=== PATIENT | male | born 1970 | race Hispanic/Latino ===

== ENCOUNTER 2025-07-16 14:56 | Emergency (ER) | payer BC ==
[~2025-07-16] VITALS: Ht 180.3 cm; Wt 113.4 kg
[2025-07-16 16:03] LABS: IMMATURE GRANULOCYTE ABSOLUTE 0.03 K/uL (0-1); NUCLEATED RED BLOOD CELLS 0.0 % (0.0-0.19); PLATELET COUNT (AUTO) 196 K/uL (130-400); RED BLOOD CELL COUNT(AUTO) 5.33 MIL/uL (4.50-6.20); RED CELL DISTRIBUTION WIDTH 13.1 % (11.0-15.5); WHITE BLOOD COUNT (AUTO) 7.6 K/uL (4.8-10.8)
[2025-07-16 16:20] LABS: CREATININE 0.9 mg/dL (0.5-1.3); GLOMERULAR FILTR. RATE CALC 101.0 mL/min (>90); GLUCOSE,RANDOM 106.0 mg/dL (70-105); SODIUM SERUM 136.0 mmol/L (136-145); UREA NITROGEN, BLOOD 12.0 mg/dL (7-18)
[2025-07-16] MEDS ORDERED: IOHEXOL-350 75 ML VIAL IV ONE (16:30)
--- NOTE | 2025-07-16 17:35 | HMCIMG ---
EXAM: CT Abdomen and Pelvis with IV contrast CLINICAL HISTORY: hx of diverticultiis TECHNIQUE: Axial computed tomography images of the abdomen and pelvis with intravenous contrast. CONTRAST: with intravenous contrast. COMPARISON: None provided. FINDINGS: LUNG BASES: Minimal right-sided pleural effusion is noted. LIVER: Liver measures 16.4 cm. Mild hepatomegaly. Diffuse fatty attenuation of liver parenchyma. GALLBLADDER AND BILE DUCTS: Few small hyperdense calculi were noted in the neck of the gallbladder of size 8 x 4 mm. The gallbladder appears within normal limits otherwise, except for the calculi. No biliary ductal dilatation is evident. PANCREAS: Unremarkable. SPLEEN: Unremarkable. ADRENAL GLANDS: Unremarkable. KIDNEYS, URETERS, AND BLADDER: Normal kidneys. No hydronephrosis. STOMACH AND BOWEL: Colonic diverticulosis in the sigmoid and distal part of the descending colon with short segment circumferentially significant thickening of the sigmoid colon, maximum thickening 2 cm, with mild surrounding inflammatory changes and peritoneal thickening, consistent with acute diverticulitis. Unremarkable appearance of the stomach and rest of the bowel, except for the sigmoid colon. No evidence of bowel obstruction. No evidence suggesting enteritis or colitis. APPENDIX: Normal appendix. PERITONEUM: Mild peritoneal thickening in the region of the sigmoid colon. No free fluid. No free air. LYMPH NODES: No lymphadenopathy is evident. REPRODUCTIVE: Normal prostate. VASCULATURE: No evidence of abdominal aortic aneurysm. BONES: Spine degenerative changes noted. No aggressive appearing osseous lesion. No acute osseous pathology evident. IMPRESSION: 1. Sigmoid diverticulitis with significant bowel wall thickening. Given the bowel wall thickening, a follow-up study is recommended after treatment to exclude an underlying mass. 2. Cholelithiasis. 3. Mild hepatomegaly with diffuse fatty attenuation. /[place]
[2025-07-16] MEDS ORDERED: KETO10TA2 PO (18:27)
[2025-07-16] MEDS ORDERED: AMOX1TAB16 PO (18:30)
[2025-07-16] MEDS: 0.9%NACL 1000ML 1,000 ML IV ONE (18:37)
--- NOTE | 2025-07-16 19:20 | ERN ---
General Chief Complaint: Abdominal Pain Stated Complaint: ABDOMINAL PAIN Time Seen by MD: 15:29 Time Seen by Midlevel: 15:29 Source: patient History of Present Illness Initial Comments The patient is a 55-year-old male with a medical history of diverticulitis presenting to the emergency department for evaluation of left lower quadrant abdominal pain that started yesterday. Associated symptoms include fevers that started yesterday. Allergies: Coded Allergies: No Known Drug Allergies (Unverified Allergy, Unknown, 07/16/25) Home Meds Active Scripts Amoxicillin/Potassium Clav (Amox Tr-K Clv 875-125 mg Tab) 875 Mg-125 Mg Tablet, 1 EACH PO TID for 5 Days, #15 TAB 0 Refills Prov:BRIGETTE GIMENEZ 07/16/25 Ketorolac Tromethamine (Ketorolac Tromethamine) 10 Mg Tablet, 1 TAB PO TID for pain for 5 Days, #15 TAB 0 Refills Prov:BRIGETTE GIMENEZ 07/16/25 Past Medical History Past Medical History: No Pertinent History Past Surgical History: None ROS Dictation CONSTITUTIONAL: Negative except for HPI HEAD/FACE: Negative except for HPI EENT: Negative except for HPI RESPIRATORY: Negative except for HPI GASTROINTESTINAL/ABDOMINAL: Negative except for HPI GENITOURINARY: Negative except for HPI MUSCULOSKELETAL: Negative except for HPI INTEGUMENTARY: Negative except for HPI NEUROLOGICAL/PSYCH: Negative except for HPI HEMATOLOGIC/LYMPHATIC: Negative except for HPI All Systems Negative, Except as noted above. 13 point review of systems assessed and all negative except for above. Physical Exam Physical Exam Dictation Vital Signs reviewed General Appearance: Alert, oriented x 3, no acute distress, well developed, nourished. Head and Face: non-traumatic. Eyes: PERRL, pink conjunctivas, eyelid no trauma, anterior chamber with arcus senilis. Ears: Pinnas intact and no signs of trauma or erythema ear canals clear and no discharge TM no erythema Nose: No discharge, no bleeding. Oropharynx: Mouth normal, tongue pink, pharynx clear,no erythema, tonsils no exudates, no abscesses noted, mucous membrane moist Neck: Supple, non-tender, no thyromegaly, no masses, no JVD, no bruits Breast:Deferred Chest:No tenderness, no crepitus, no paradoxical movement, no retractions Lungs:Clear, well-ventilated, symmetric, no rales, no wheezing, no rhonchi, no stridor, good breath sounds bilaterally Heart: Regular rate, regular rhythm, no murmur, no gallops Vascular: no peripheral edema, Abdomen: Soft, positive bowel sounds, nondistended, no guarding, Left lower quadrant abdominal tenderness, no rebound, no masses no hepatomegaly, no splenomegaly, no Victor's sign, no hernias. Rectal: Deferred Genital: Deferred Neurological: Normal speech, motor function intact, sensory function intact Musculoskeletal: Neck nontender, full range of motion, back nontender, full range of motion, Extremities: nontender, full range of motion Skin: Color pink, dry, no turgor, no rash, no lacerations, no abrasions, no contusions. Lymphatic: Deferred Results Laboratory and Microbiology Lab and Micro Result Laboratory Tests Test 07/16/25 15:45 White Blood Count 7.6 K/uL (4.8-10.8) Red Blood Count 5.33 MIL/uL (4.50-6.20) Hemoglobin 15.4 g/dL (14.0-18.0) Hematocrit 45.5 % (42-54) Mean Corpuscular Volume 85.4 fL (79-99) Mean Corpuscular Hemoglobin 28.9 pg (27.0-33.0) Mean Corpuscular Hemoglobin Concent 33.8 g/dL (32.0-36.0) Red Cell Distribution Width 13.1 % (11.0-15.5) Platelet Count 196 K/uL (130-400) Mean Platelet Volume 9.7 fL (7.5-10.5) Immature Granulocyte % (Auto) 0.4 % (0-1) Neutrophils (%) (Auto) 70.3 % (40.0-77.0) Lymphocytes (%) (Auto) 16.6 % (21.0-51.0) L Monocytes (%) (Auto) 10.7 % (3.0-13.0) Eosinophils (%) (Auto) 1.2 % (0.0-8.0) Basophils (%) (Auto) 0.8 % (0.0-5.0) Neutrophils # (Auto) 5.3 K/uL (1.8-7.7) Lymphocytes # (Auto) 1.3 K/uL (1.0-4.8) Monocytes # (Auto) 0.8 K/uL (0.1-1.0) Eosinophils # (Auto) 0.09 K/uL (0.00-0.70) Basophils # (Auto) 0.06 K/uL (0.00-0.20) Absolute Immature Granulocyte (auto 0.03 K/uL (0-1) Nucleated Red Blood Cells 0.0 % (0.0-0.19) Sodium Level 136 mmol/L (136-145) Potassium Level 4.2 mmol/L (3.5-5.1) Chloride Level 102 mmol/L (101-111) Carbon Dioxide Level 30 mmol/L (21-32) Blood Urea Nitrogen 12 mg/dL (7-18) Creatinine 0.9 mg/dL (0.5-1.3) Glomerular Filtration Rate Calc 101 mL/min (>90) Random Glucose 106 mg/dL (70-105) H Lactic Acid Level 1.4 mmol/L (0.8-2.5) Total Calcium 8.6 mg/dL (8.5-10.1) Labs Reviewed?: Yes MDM MDM: Differential diagnosis: Diverticulitis, constipation, bowel obstruction There are no social concerns with this patient. Prescription drug management Prescriptions will include: Augmentin, ketorolac Medical management and examination interpretation discussions were had by me with other qualified healthcare professionals as indicated for the patient's care. ED Course Orders Procedure Category Date Status Time Cbc With Differential LAB 07/16/25 Complete 15:29 Basic Metabolic Panel LAB 07/16/25 Complete 15:29 Lactic Acid LAB 07/16/25 Complete 15:29 Ct Abdomen/Pelvis CT 07/16/25 Resulted W/Contrast 15:29 Iohexol (Omnipaque) PHA 07/16/25 Complete 16:30 0.9%Nacl 1000ml (Ns PHA 07/16/25 Complete 1000ml) 18:30 Metronidazole PHA 07/16/25 In Process 500mg/100ml Bag 19:00 Ketorolac PHA 07/16/25 Complete Tromethamine 15mg/Ml 18:30 Acetaminophen 500mg PHA 07/16/25 Complete Tab (Tylenol 500mg T 18:30 Current Medications Medications (Trade) Dose Ordered Sig/Adriane Route PRN Reason Start Time Stop Time Status Last Admin Dose Admin Acetaminophen (TYLenol 500MG TAB) 1,000 mg ONCE ONCE PO 07/16/25 18:30 07/16/25 18:35 DC 07/16/25 18:42 Iohexol (Omnipaque) 75 ml STK-MED ONCE IV 07/16/25 16:30 07/16/25 16:30 DC Ketorolac Tromethamine (toRADol) 15 mg ONCE ONCE IV 07/16/25 18:30 07/16/25 18:35 DC 07/16/25 18:37 Metronidazole/ Sodium Chloride 100 ml @ 100 mls/hr ONCE ONCE IVPB 07/16/25 19:00 07/16/25 19:59 07/16/25 18:41 Sodium Chloride 1,000 ml @ 0 mls/hr ONCE ONCE IV 07/16/25 18:30 07/16/25 18:35 DC 07/16/25 18:37 Vital Signs Date Time Temp Pulse Resp B/P (MAP) Pulse Ox O2 Delivery O2 Flow Rate FiO2 07/16/25 18:42 101.3 07/16/25 16:30 101.3 84 16 150/85 98 Room Air* 0 21 07/16/25 14:59 101.3 89 16 151/89 99 Room Air DX & DISP Disposition: Discharge Departure Impression: Primary Impression: Sigmoid diverticulitis Condition: Stable Scripts Amoxicillin/Potassium Clav (Amox Tr-K Clv 875-125 mg Tab) 875 Mg-125 Mg Tablet 1 EACH PO TID for 5 Days, #15 TAB 0 Refills Prov: BRIGETTE GIMENEZ 07/16/25 Ketorolac Tromethamine (Ketorolac Tromethamine) 10 Mg Tablet 1 TAB PO TID for pain for 5 Days, #15 TAB 0 Refills Prov: BRIGETTE GIMENEZ 07/16/25 Additional Instructions: You has been diagnosed with a acute diverticulitis, which means small patches in your colon came inflamed or infected. This is an uncomplicated case, so you can be safely treated at home. You received your 1st dose of antibiotics in the emergency department and you will now continue with oral antibiotics at home. For the next few days, speak to a clear liquid diet. Example broth, gelatin, cleared juices, tea, etc.. As your symptoms improve he can slowly advanced to soft foods in the back to your regular diet. Avoid seeds, nuts, popcorn, or foods that are hard to digest until you fully recovered. Rest as needed, but light walking is encouraged to help bowel function. If you develop persistent fevers, nausea, vomiting, or worsening abdominal pain please report to the ER for further evaluation. Referrals: RADHA LEVINE (PCP) I have reviewed the case, and I agree with, Diagnosis and Plan I performed the substantive portion of the visit. I have reviewed and personally made and approve the management plan that is documented in the note by myself or the LISBET. I acknowledge for responsibility for the patient's management plan. BRIGETTE GIMENEZ Jul 16, 2025 19:20
--- NOTE | 2025-07-16 19:28 | NUR ---
DC PEND MEDICATION ADMINISTRATION
[2025-07-16 19:50] VITALS: BP 145/80; PULSE 80; RESP 16; TEMP 99.2; O2SAT 98
== END 2025-07-16 20:04 | disposition home or self-care (01) ==
LOC: EDH 14:56
DX: K57.32 Diverticulitis of large intestine without perforation or abscess without bleeding (principal); K80.20 Calculus of gallbladder without cholecystitis without obstruction; Z79.899 Other long term (current) drug therapy
CPT/HCPCS: 99284; 74177; 96374; 96375; 80048; 85025; 83605; 36415; J1885; J7030; J3490; Q9967